=== PATIENT | female | born 1985 | race Caucasian/White ===

== ENCOUNTER 2017-08-10 10:24 | Inpatient (IN) | payer OTHER ==
[~2017-08-10] VITALS: Ht 170.2 cm; Wt 101.9 kg
[~2017-08-10 10:24] MED LIST: CYMBALTA20 MG PO; DAILY MULTIPLE1 EACH PO; EFFEXOR XR75 MG PO; LEVOTHYROXINE75 MCG PO; NORCO 5/3251 TABLET PO; VITAMIN B12 100MCG PO
[2017-08-10 11:02] LABS: HEMATOCRIT 39.7 % (36.0-46.0); HEMOGLOBIN 13.7 G/DL (11.9-15.5); MCHC 34.5 G/DL (30.0-36.0); MCV 84.1 FL (83-99); PLATELET COUNT 198 K/uL (156-360); RBC DIS.WIDTH-SD 40.2 % (39-53); RED BLOOD COUNT 4.72 M/uL (3.80-5.20); WHITE BLOOD COUNT 20.4 K/uL (4.1-10.2)
[2017-08-10 11:11] LABS: CHLORIDE 101 mEq/L (99-109); POTASSIUM 3.6 mEq/L (3.7-5.4); SODIUM 139 mEq/L (136-147)
[2017-08-10 11:13] LABS: GLUCOSE 123 mg/dL (70-99)
[2017-08-10 11:17] LABS: CREATININE 1.1 mg/dL (0.6-1.3); GFR ESTIMATE (CALCULATED) > 59 mL/min/; UREA NITROGEN (BUN) 16 mg/dL (9-23)
[2017-08-10 11:25] LABS: APPEARANCE TURBID ((CLEAR)); BILIRUBIN SMALL; BLOOD SMALL; COLOR AMBER ((YELLOW)); GLUCOSE (STRIP) NEGATIVE; KETONES NEGATIVE; LEUKOCYTES MODERATE; NITRITE POSITIVE; PROTEIN (STRIP) 100; SPECIFIC GRAVITY 1.026 (1.000-1.030)
[2017-08-10 11:28] LABS: QUANTITATIVE HCG < 4.0 MIU/ML
[2017-08-10 11:40] LABS: OTHER SC; UCUL ADDED? YES; WHITE BLOOD CELLS TNTC /HPF (0-5)
[2017-08-10 16:01] VITALS: BP 117/59
[2017-08-10 19:39] VITALS: BP 108/59
[2017-08-10 22:35] VITALS: BP 102/46
[2017-08-11 04:40] VITALS: BP 115/56
[2017-08-11 05:47] LABS: HEMATOCRIT 36.3 % (36.0-46.0); HEMOGLOBIN 12.1 G/DL (11.9-15.5); MCH 28.2 PG (29.0-34.0); MCHC 33.3 G/DL (30.0-36.0); MCV 84.6 FL (83-99); PLATELET COUNT 194 K/uL (156-360); RBC DIS.WIDTH-CV 13.3 % (11.8-14.6); RBC DIS.WIDTH-SD 41.5 % (39-53); RED BLOOD COUNT 4.29 M/uL (3.80-5.20); WHITE BLOOD COUNT 15.9 K/uL (4.1-10.2)
[2017-08-11 06:29] LABS: CHLORIDE 102 MEQ/L (99-109); CREATININE 1.2 MG/DL (0.6-1.3); GFR ESTIMATE (CALCULATED) 55 mL/min/; GLUCOSE 123 mg/dL (70-99); POTASSIUM 3.8 MEQ/L (3.7-5.4); SODIUM 136 MEQ/L (136-147); UREA NITROGEN (BUN) 19 mg/dL (9-23)
[2017-08-11 07:52] VITALS: BP 90/50
[2017-08-11 12:23] VITALS: BP 110/63
[2017-08-11 16:50] VITALS: BP 113/56
[2017-08-11 19:57] VITALS: BP 113/62; BP 87/54
[2017-08-11 23:12] VITALS: BP 122/75
[2017-08-12 03:23] VITALS: BP 108/58
[2017-08-12 07:19] VITALS: BP 130/59
[2017-08-12 16:18] VITALS: BP 106/62
[2017-08-13 00:09] VITALS: BP 104/56
[2017-08-13 05:59] LABS: BASOPHIL (%) 0.4 % (0-1); EOSINOPHIL (%) 0.9 % (0-5); EOSINOPHIL COUNT 0.1 K/uL (0-0.3); HEMATOCRIT 32.4 % (36.0-46.0); HEMOGLOBIN 10.7 G/DL (11.9-15.5); IMMATURE GRANULOCYTE (%) 0.7 % (0.0-0.7); LYMPHOCYTE (%) 19.9 % (15-42); LYMPHOCYTE COUNT 1.9 K/uL (1.0-2.8); MCH 27.9 PG (29.0-34.0); MCV 84.6 FL (83-99); MONOCYTE (%) 12.9 % (3-12); MONOCYTE COUNT 1.2 K/uL (0-0.8); NEUTROPHIL (%) 65.2 % (45-76); NEUTROPHIL COUNT 6.2 K/uL (1.8-6.4); RBC DIS.WIDTH-CV 14.3 % (11.8-14.6); RBC DIS.WIDTH-SD 44.2 % (39-53); RED BLOOD COUNT 3.83 M/uL (3.80-5.20); WHITE BLOOD COUNT 9.6 K/uL (4.1-10.2)
[2017-08-13 06:10] LABS: PLATELET COUNT 253 K/uL (156-360)
[2017-08-13 07:58] LABS: CHLORIDE 106 MEQ/L (99-109); CREATININE 0.8 MG/DL (0.6-1.3); GFR ESTIMATE (CALCULATED) > 59 mL/min/; POTASSIUM 3.4 MEQ/L (3.7-5.4); SODIUM 140 MEQ/L (136-147); THYROTROPIN (TSH) 2.9 MIU/L (0.4-5.5); UREA NITROGEN (BUN) 9 mg/dL (9-23)
[2017-08-13 08:04] LABS: GLUCOSE 92 mg/dL (70-99)
[2017-08-13 08:32] VITALS: BP 112/71
[2017-08-13 08:57] LABS: HEMOGLOBIN A1c (GLYCOHEMOGLOB) 5.2 % (Below 5.7)
[2017-08-13] MEDS ORDERED: ZOFRAN ODT4 MG PO (09:52)
[2017-08-13] MEDS ORDERED: ENDOCET 5-3251 EACH PO (09:52)
[2017-08-13] MEDS ORDERED: CEFDINIR300 MG PO (09:52)
== END 2017-08-13 11:00 | disposition home or self-care (01) | DRG 690 ==
LOC: EME 10:24 → 2EAST 13:29 → ENRESERV 13:29 → EDOF 13:29 → ENRESERV 14:09 → 2EAST 15:48
PROVIDERS: Internal Medicine; Physician Assistant
DX: N10 Acute pyelonephritis (principal); F17.200 Nicotine dependence, unspecified, uncomplicated; J45.909 Unspecified asthma, uncomplicated; F43.10 Post-traumatic stress disorder, unspecified; Z98.84 Bariatric surgery status; F32.9 Major depressive disorder, single episode, unspecified; F41.9 Anxiety disorder, unspecified; Z83.3 Family history of diabetes mellitus; E03.9 Hypothyroidism, unspecified; A49.8 Other bacterial infections of unspecified site; D50.9 Iron deficiency anemia, unspecified; Z82.49 Family history of ischemic heart disease and other diseases of the circulatory system; Z81.8 Family history of other mental and behavioral disorders
CPT/HCPCS: 74176; 80048; 81003; 83036; 83605; 84443; 84702; 85025; 85027; 87040; 87077; 87086; 87186; 99281; 99285; J0696; J1644; J1885; J2405; J3010; J7030